=== PATIENT | male | born 1950 | race Caucasian/White ===

== ENCOUNTER 2019-07-18 11:37 | Inpatient (IN) ==
[2019-07-18] MEDS ORDERED: Acetaminophen IV 1,000 MG/100 ML INFUS..BTL IVPB ONE (12:15)
[2019-07-18] MEDS ORDERED: *HR* Midazolam HCl 2 MG/2 ML VIAL IVP PRN (12:15)
[2019-07-18] MEDS ORDERED: *HR* HYDROmorphone (PF) 1 MG/ML SYRINGE IVP PRN (12:15)
[2019-07-18] MEDS ORDERED: *HR* Promethazine 25 MG/ML VIAL IVP PRN (12:15)
[2019-07-18] MEDS ORDERED: diazePAM 5 MG TABLET PO ONE (12:15)
[2019-07-18] MEDS ORDERED: Ringers Solution, Lactated 1,000 ML IVC SCH ×2 (12:15→12:45)
[2019-07-18] MEDS ORDERED: Ondansetron ODT 4 MG TAB.RAPDIS SL ONE (12:15)
[2019-07-18] MEDS ORDERED: *HR* Meperidine 25 MG/ML SYRINGE IVP PRN (12:15)
[2019-07-18] MEDS ORDERED: Famotidine 20 MG/2 ML VIAL IVP ONE (12:15)
[2019-07-18] MEDS ORDERED: cefOXitin 2,000 MG in Water for inj. (sterile) 20 ML IVP ONE (12:38)
[2019-07-18] MEDS ORDERED: *HR* Propofol 200 MG/20 ML VIAL IVP ONE (13:02)
[2019-07-18] MEDS ORDERED: *HR* Rocuronium Bromide 50 MG/5 ML VIAL ONE (13:02)
[2019-07-18] MEDS ORDERED: Lidocaine -MPF 2% 2 ML VIAL ONE (13:02)
[2019-07-18] MEDS ORDERED: *HR* FentaNYL (PF) 100 MCG/2 ML VIAL ONE ×2 (13:02→15:12)
[2019-07-18] MEDS ORDERED: Dexamethasone 4 MG/ML VIAL ONE (15:11)
[2019-07-18] MEDS ORDERED: *HR* HYDROMORPHONE 2 MG/ML VIAL ONE (16:48)
[2019-07-18] MEDS ORDERED: Ondansetron 4 MG/2 ML VIAL ONE (16:53)
[2019-07-18] MEDS ORDERED: Neostigmine Methylsulfate 3 MG/3 ML SYRINGE ONE (16:53)
[2019-07-18] MEDS ORDERED: Ondansetron 4 MG/2 ML VIAL IVP PRN (17:18)
[2019-07-18] MEDS ORDERED: *HR* Metoprolol 5 MG/5 ML VIAL IVP PRN ×2 (17:18→19:04)
[2019-07-18] MEDS ORDERED: Naloxone 0.4 MG/ML INJ IVP PRN ×2 (17:18→19:04)
[2019-07-18] MEDS ORDERED: *HR* OxyCODONE/APAP 5/325 TABLET PO PRN (17:20)
[2019-07-18] MEDS ORDERED: Ketorolac 15 MG/ML VIAL IVP PRN ×2 (17:28→19:04)
[2019-07-18] MEDS ORDERED: 0.9 % Sodium Chloride 1,000 ML IVC SCH (17:30)
[2019-07-18] MEDS: 0.9 % Sodium Chloride 1,000 ML IVC SCH (22:26)
[2019-07-18] MEDS: *HR* OxyCODONE/APAP 5/325 TABLET PO PRN (22:30)
[2019-07-19] MEDS: *HR* OxyCODONE/APAP 5/325 TABLET PO PRN ×2 (05:01→08:48)
[2019-07-19 06:45] LABS: Basophils % 0.2 %; Hematocrit 42.4 % (37.5-50.1); Hemoglobin 13.8 g/dL (12.9-16.9); Immature Granulocytes % 0.3 % (0-4); Lymphocytes # 0.8 K/mcL (0.6-4.6); Lymphocytes % 8.1 %; Mean Corpuscular HGB Conc 32.5 g/dL (31.6-35.5); Mean Corpuscular Hemoglobin 27.5 pg (28.0-33.3); Mean Corpuscular Volume 84.6 fL (83.0-100.0); Mean Platelet Volume 10.1 fL (9.4-12.4); Monocytes # 0.6 K/mcL (0.0-1.3); Monocytes % 6.5 %; Neutrophils # 8.4 K/mcL (1.6-8.9); Platelet Count 255 K/mcL (140-400); Red Blood Count 5.01 M/mcL (4.19-5.50); Red Cell Distribution Width 13.5 % (11.5-14.5); Segmented Neutrophils % 84.9 %; White Blood Count 9.9 K/mcL (4.3-11.1)
[2019-07-19 07:07] LABS: BUN/Creatinine Ratio 15 (6-26); Blood Urea Nitrogen 15 mg/dL (8-23); Calcium 8.8 mg/dL (8.6-10.3); Carbon Dioxide 22 mEq/L (23-29); Chloride 107 mEq/L (98-107); Glucose 132 mg/dL (70-105); Magnesium 1.9 mg/dL (1.6-2.6); Osmolality,Calculated 285 (280-300); Phosphorous 3.5 mg/dL (2.7-4.5); Potassium 4.3 mEq/L (3.5-5.1); Sodium 136 mEq/L (136-145); eGFR For African Americans > 60 (> 60); eGFR For Non-African Americans > 60 (> 60)
[2019-07-19] MEDS: 0.9 % Sodium Chloride 1,000 ML IVC SCH ×3 (07:44→21:03)
[2019-07-19] MEDS: Pantoprazole 40 MG VIAL IVP SCH (07:45)
[2019-07-19] MEDS: amLODIPine 5 MG TABLET PO SCH (07:45)
[2019-07-19] MEDS ORDERED: (Pravastatin Sodium [Pravachol] 40 MG) PO SCH (09:00)
[2019-07-19] MEDS ORDERED: Pantoprazole 40 MG VIAL IVP SCH (09:00)
[2019-07-19] MEDS ORDERED: amLODIPine 5 MG TABLET PO SCH (09:00)
[2019-07-19] MEDS: Ketorolac 15 MG/ML VIAL IVP SCH ×2 (11:51→17:43)
[2019-07-19] MEDS: *HR* Heparin 5,000 UNIT/ML VIAL SQ SCH (17:43)
[2019-07-20] MEDS: Ketorolac 15 MG/ML VIAL IVP SCH ×5 (00:16→23:34)
[2019-07-20 05:37] LABS: Basophils % 0.4 %; Eosinophils # 0.1 K/mcL (0.0-0.6); Eosinophils % 0.5 %; Hematocrit 41.8 % (37.5-50.1); Hemoglobin 13.7 g/dL (12.9-16.9); Immature Granulocytes % 0.3 % (0-4); Lymphocytes # 1.5 K/mcL (0.6-4.6); Lymphocytes % 14.1 %; Mean Corpuscular HGB Conc 32.8 g/dL (31.6-35.5); Mean Corpuscular Hemoglobin 27.7 pg (28.0-33.3); Mean Corpuscular Volume 84.6 fL (83.0-100.0); Mean Platelet Volume 10.2 fL (9.4-12.4); Monocytes # 1.1 K/mcL (0.0-1.3); Monocytes % 9.9 %; Neutrophils # 8.2 K/mcL (1.6-8.9); Platelet Count 237 K/mcL (140-400); Red Blood Count 4.94 M/mcL (4.19-5.50); Red Cell Distribution Width 13.6 % (11.5-14.5); Segmented Neutrophils % 74.8 %; White Blood Count 10.9 K/mcL (4.3-11.1)
[2019-07-20] MEDS: Ondansetron 4 MG/2 ML VIAL IVP PRN (05:38)
[2019-07-20] MEDS: *HR* Heparin 5,000 UNIT/ML VIAL SQ SCH ×2 (05:38→17:44)
[2019-07-20 05:59] LABS: BUN/Creatinine Ratio 16 (6-26); Blood Urea Nitrogen 17 mg/dL (8-23); Carbon Dioxide 24 mEq/L (23-29); Chloride 106 mEq/L (98-107); Glucose 109 mg/dL (70-105); Osmolality,Calculated 284 (280-300); Potassium 4.1 mEq/L (3.5-5.1); Sodium 136 mEq/L (136-145); eGFR For African Americans > 60 (> 60); eGFR For Non-African Americans > 60 (> 60)
[2019-07-20] MEDS: Pantoprazole 40 MG VIAL IVP SCH (07:57)
[2019-07-20] MEDS: amLODIPine 5 MG TABLET PO SCH (07:58)
[2019-07-20] MEDS: 0.9 % Sodium Chloride 1,000 ML IVC SCH ×2 (10:15→23:43)
[2019-07-20] MEDS: Metoclopramide 10 MG/2 ML VIAL IVP SCH ×3 (11:48→23:33)
[2019-07-21 05:40] LABS: Basophils % 0.4 %; Eosinophils % 0.3 %; Hemoglobin 14.1 g/dL (12.9-16.9); Immature Granulocytes % 0.3 % (0-4); Lymphocytes # 1.1 K/mcL (0.6-4.6); Lymphocytes % 9.7 %; Mean Corpuscular HGB Conc 32.8 g/dL (31.6-35.5); Mean Corpuscular Hemoglobin 27.8 pg (28.0-33.3); Mean Corpuscular Volume 84.8 fL (83.0-100.0); Mean Platelet Volume 10.4 fL (9.4-12.4); Monocytes # 1.1 K/mcL (0.0-1.3); Monocytes % 10.3 %; Neutrophils # 8.8 K/mcL (1.6-8.9); Platelet Count 261 K/mcL (140-400); Red Blood Count 5.07 M/mcL (4.19-5.50); Red Cell Distribution Width 13.8 % (11.5-14.5); White Blood Count 11.1 K/mcL (4.3-11.1)
[2019-07-21] MEDS: Ketorolac 15 MG/ML VIAL IVP SCH (06:03)
[2019-07-21 06:04] LABS: BUN/Creatinine Ratio 22 (6-26); Blood Urea Nitrogen 27 mg/dL (8-23); Calcium 8.7 mg/dL (8.6-10.3); Carbon Dioxide 21 mEq/L (23-29); Chloride 106 mEq/L (98-107); Glucose 114 mg/dL (70-105); Magnesium 1.9 mg/dL (1.6-2.6); Osmolality,Calculated 294 (280-300); Phosphorous 3.5 mg/dL (2.7-4.5); Potassium 3.9 mEq/L (3.5-5.1); Sodium 139 mEq/L (136-145); eGFR For African Americans > 60 (> 60); eGFR For Non-African Americans 58 (> 60)
[2019-07-21] MEDS: *HR* Heparin 5,000 UNIT/ML VIAL SQ SCH (06:04)
[2019-07-21] MEDS: Ondansetron 4 MG/2 ML VIAL IVP PRN (06:04)
[2019-07-21] MEDS: Metoclopramide 10 MG/2 ML VIAL IVP SCH ×2 (06:04→12:27)
[2019-07-21] MEDS ORDERED: Acetaminophen IV 1,000 MG/100 ML INFUS..BTL IVPB SCH (08:00)
[2019-07-21] MEDS: Pantoprazole 40 MG VIAL IVP SCH (09:52)
[2019-07-21] MEDS: amLODIPine 5 MG TABLET PO SCH (09:58)
[2019-07-21 11:08] VITALS: BP 121/78
[2019-07-21] MEDS ORDERED: *HR* HYDROcodone/Acet 5/325 mg TABLET PO PRN (11:49)
[2019-07-21] MEDS ORDERED: Acetaminophen 325 MG TABLET PO PRN (11:49)
[2019-07-21] MEDS ORDERED: Ibuprofen 600 MG TABLET PO SCH (15:00)
== END 2019-07-21 15:37 | disposition home or self-care (01) | DRG 330 ==
LOC: SAMDAY 11:37 → 3ANU 18:05
PROVIDERS: ADMIT Surgery; ATTEND Surgery